=== PATIENT | male | born 1945 | race Caucasian/White ===

== ENCOUNTER 2022-03-15 07:49 | Outpatient (CLI) | payer MEDICARE, SELFPAY ==
--- NOTE | 2022-03-15 09:15 | MR_ITS ---
[address] [address] Phone:?[phone] Fax:?[phone] Referring Physician Information: Ge Lawrence M.D. [address] [facility] [address] Phone:?[phone] Fax:?[phone] Patient:?James Bear D.O.B:?1945 Sex:?Male Phone:?[phone] [facility] MRN:?[id number] Exam Date:?03/15/2022 ? EXAM: MR LUMBAR SPINE WITHOUT CONTRAST CLINICAL INFORMATION: Lumbar radiculopathy. COMPARISON:?MRI lumbar spine 06/22/2019. TECHNICAL INFORMATION: T1 and T2 FSE and STIR sagittal thin sections through the lumbar spine with T1 and T2 FSE axial sections at selected levels. INTERPRETATION: 5 lumbar levels with straightened lordotic alignment. Conus medullaris terminates at L1 and has normal signal. No evidence of arachnoid disease or abnormal neural development. Vertebral body heights are maintained. Paraspinal soft tissues appear normal. Partially visualized bilateral sacroiliac joint degeneration with possible reactive inflammatory change. L5-S1: Mild to moderate disc degeneration, dorsal disc bulge and endplate ridging, mild left facet degeneration. No central stenosis. Moderate right greater than left foraminal stenosis. L4-5: Status post left laminectomy and medial facetectomy. Moderate left asymmetric disc degeneration and ventral osteophyte, trace retrolisthesis, dorsal osteophyte with 5 mm AP T2 hyperintensity in the left lateral recess encroaching/impinging the left L5 nerve root (series 2 image 10, series 7 image 28), normal facet joints. Mild left asymmetric central stenosis. Mild to moderate right and moderate to severe left foraminal stenosis with left L4 impingement. L3-4: Mild disc degeneration and ventral osteophyte, left asymmetric disc bulge and endplate ridging, normal facet joints. No central or significant foraminal stenosis. L2-3: Mild disc degeneration, prominent ventral osteophyte, minimal facet degeneration. No central or foraminal stenosis. L1-2: Prominent ventral osteophyte, normal posterior disc contour. No central or foraminal stenosis. T12-L1: No central or foraminal stenosis. Compared to 06/22/2019 the L4-5 left posterolateral herniation/cyst has decreased in size. CONCLUSION: 1. L4-5 left posterolateral 5 mm T2 hyperintensity encroaches/impinges the L5 nerve root, possibly representing a disc herniation or discal cyst. 2. L4-5 moderate to severe left foraminal stenosis with left L4 impingement, also moderate right greater than left L5-S1. 3. 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 Electronically signed on 03/17/2022 7:19:00 PM by Ras Kim M.D.
== END 2022-03-15 07:50 | disposition home or self-care (01) ==
LOC: MRI 07:50
PROVIDERS: PCP Family Medicine; Visit Provider Orthopaedic Surgery Sports Medicine
DX: M54.16 Radiculopathy, lumbar region (principal); M51.26 Other intervertebral disc displacement, lumbar region; M48.061 Spinal stenosis, lumbar region without neurogenic claudication
CPT/HCPCS: 72148

== ENCOUNTER 2024-09-06 07:21 | Day surgery (SDC) | payer MEDICARE, SELFPAY ==
[2024-09-06] VITALS (22 sets, daily range): BP systolic 125–152; BP diastolic 56–89; PULSE 55–78; RESP 10–18; TEMP 35.6–36.8; O2SAT 92–98; BMI 34.0
[2024-09-06] MEDS: SODIUM CHLORIDE 0.9 % (FLUSH) 10 ML SYRINGE IVF (08:15)
[2024-09-06] MEDS: 0.9 % SODIUM CHLORIDE 500 ML 500 ML 100 ML IV ×2 (08:15→09:44)
--- NOTE | 2024-09-06 09:03 | W.PM.H&PU ---
History & Physical Update History & Physical Update H&P Reviewed and patient assessed: No changes noted H&P Updates: Patient has held his rivaroxaban for 3 days.
--- NOTE | 2024-09-06 09:04 | P.GSOP_ITS ---
Operative Note Date of procedure: 09/06/24 Pre-op diagnosis: Ventral incisional hernia Post-op diagnosis: Same Type of Procedure: 1. Laparoscopic lysis of adhesion 2. Laparoscopic-assisted repair of 3 cm incisional hernia with Phasix mesh Indications: The patient is a 79-year-old male who developed a hernia at the site of his incision from a prior low anterior resection for rectal cancer. We discussed options and elected to proceed with repair. Procedure Description: After discussing the risks and benefits of the procedure, the patient signed informed consent.? The operative site was marked and the patient was brought to the operating room and placed on the operating table in supine position.? Care was taken to pad the patient's pressure points.?? The patient was then intubated by anesthesia.?? The operative site was then prepped and draped in the usual sterile fashion.? A time-out was then performed. Entrance the abdomen was gained via Visiport technique in the left upper quadrant. The layers of the abdomen were visualized as I passed through. The abdomen was then insufflated. The patient was noted to have adhesions to his ileostomy site as well as to the noted hernia just above the umbilicus. An additional 5 port was placed in the left lateral abdomen. I began by sharply dissecting the adhesions from the hernia using a scissor. The hernia mainly had omental adhesions adherent to it. Just below the hernia however there was loops of small bowel which were densely adherent to the peritoneum. These were taken down sharply with a scissor. Once I had cleared enough space, I placed an additional 5 mm port in the left lower quadrant. The patient was noted to have multiple interloop adhesions between loops of small bowel. I turned my attention to the area of the ileostomy site. This was close enough to the initial hernia that taking down the adhesions here would help facilitate mesh placement, and also, the patient was concerned that he could develop a hernia in this location. Therefore, again I took down the adhesions between the omental fat and also small bowel. There were marie adherent to the abdominal wall indicative of the area of the anastomosis. This was again carefully taken down sharply. The fascia here was intact. Once I had freed the small bowel sufficiently to facilitate the hernia repair, I examined the small bowel. There appeared to possibly be 2 small serosal tears, inherent to the nature of the operation, on the most proximal loop of bowel. On 1 distal loop of bowel, it was unclear whether not a serosal tear was present. I looked at the area of the anastomosis. I had divided scar tissue between the anastomosis and the abdominal wall and it did not appear as there was any injury to the bowel, however given that this was on a staple line, and while I supposed to be marie on the bowel mesentery, I elected to over-sew this. The left upper quadrant port was upsized to a an 11 mm port. Through this I passed the needle and in Lembert fashion oversewed the area of marie at the distal aspect of the anasto mosis using 3-0 Vicryl. The needle was removed from the abdomen and at this time colleague enter the OR to better examine the area of small bowel around the hernia. In the distal area where I was not entirely certain that there was a serosal tear, it was thought that there may have been a full-thickness tear with succus possibly noted as there was a glimpse of yellow seen. I freed up this loop of small bowel which had filmy adhesions to another loop in the pelvis and was able to pull this further into view. While I did not see a full-thickness injury or succus, at this point I felt it was safest to open the skin at the site of the hernia and look at the bowel more closely. I created incision over the hernia itself using a knife. Dissection was taken down into the subcutaneous fat using cautery. I did open the fascia an additional cm. The fascia previously measured 3 cm. An Rocco wound retractor was then placed into the wound and the bowel was brought into view. An interloop adhesion was sharply divided and the bowel was examined closely. There was no sign of full- thickness injury. I believe that the yellow area was a small amount of mesenteric fat which was present in the interloop adhesion. Examining the bowel proximally and distally again I did not see a full-thickness injury. There was a small area that appeared to be a serosal tear which was oversewn with 3-0 silk in an imbricating fashion without narrowing the small bowel. The small bowel was then run proximally to examine the other area of concern and 2 small serosal tears were noted. These were also oversewn in Lembert fashion with care to avoid narrowing the lumen of the bowel. I was also able to examine the anastomosis. This also appeared to be intact without sign of injury. I dropped the bowel back into the abdomen and examined the hernia. Given the small size of the hernia I elected to create a preperitoneal space and closed the hernia primarily with intraperitoneal placement of mesh. I elected to use Phasix ST mesh. With a combination of cautery and blunt dissection I removed the peritoneum from the posterior rectus sheath creating a large pocket for the placement of mesh. Inferiorly at the patient's scar from his prior incision, the peritoneum did not come down as easily. I obtained a piece of Phasix ST mesh measuring 10 x 15 cm. I placed this in the preperitoneal space and it fit perfectly centered over the fascial opening. I then placed 2-0 PDS stay stitches in the mesh in the North South East and West position and then using a [employer] device passed the sutures through small stab incisions made in the skin. These were then tied in place. The mesh laid perfectly flat. I then closed the fascia with a running 1. PDS. I then insufflated the abdomen, at a pressure of 12. I again examined the bowel and there were no additional areas of concern. I then used an absorbable Tacker to tack the mesh inferiorly to the fascia along the edge where the peritoneum did not cover. The peritoneum cover the mesh on all the other side and was tacked over the mesh in the middle. The left upper quadrant port was then closed with 0 Vicryl using a [employer] [facility] device. The abdomen was then desufflated and the ports were removed. Exparel and Marcaine in combination were injected in the fascia and subcutaneous around the hernia repair site. The hernia was closed in layers with 3-0 Vicryl dermal and 4-0 Monocryl running subcuticular suture. Port sites were closed with 4-0 Monocryl suture. Glue was used to close the incisions including the stab incisions from the transfascial sutures. The patient was then woken and transported to the recovery area in stable condition. ? The patient tolerated the procedure well. Findings: 1. 3 cm supraumbilical incisional hernia 2. No hernia noted at ileostomy site 3. Dense adhesions between the small bowel and abdominal wall 4. Small serosal tears were repaired. Implants: Phasix ST mesh Anesthesia: GETA Surgeon: Hannah Bay MD Estimated blood loss (mL): 10 Condition: stable Disposition: PACU
[2024-09-06] MEDS: CEFAZOLIN 2 GM INJ IVP (09:17)
--- NOTE | 2024-09-06 09:21 | P.ANES_ITS ---
Anesthesia Charges Start Date/Time Anesthesia Start Date: 09/06/24 Anesthesia Start Time: 09:03 Stop Date/Time Anesthesia Stop Date: 09/06/24 Anesthesia Stop Time: 12:18 Summary Extremes of Age - Over 70 or under 1: MDA Coding CPT Codes CPT Codes: ANESTH REPAIR OF HERNIA - 53116 ([id number]) P2 - PATIENT W/MILD SYST DISEASE, QK - KEG HEADER 2-4 CNCRNT ANES PROC, QX - HOOKER INSPECTOR SVC W/ MD MED DIRECTION Additional Codes: Summary - Extremes of Age - Over 70 or under 1: MDA ([id number])
--- NOTE | 2024-09-06 09:21 | W.ANESCHARGE ---
Anesthesia Charges Start Date/Time Anesthesia Start Date: 09/06/24 Anesthesia Start Time: 09:03 Stop Date/Time Anesthesia Stop Date: 09/06/24 Anesthesia Stop Time: 12:18 Summary Extremes of Age - Over 70 or under 1: MDA Coding CPT Codes CPT Codes: ANESTH REPAIR OF HERNIA - 58423 ([id number]) P2 - PATIENT W/MILD SYST DISEASE, QK - PIZZA HUT ASSISTANT 2-4 CNCRNT ANES PROC, QX - LADIES ATTENDANT SVC W/ MD MED DIRECTION Additional Codes: Summary - Extremes of Age - Over 70 or under 1: MDA ([id number])
[2024-09-06] MEDS: BUPIVACAINE LIPOSOME 133 MG/10 ML INJ INFILTRATI (11:50)
[2024-09-06] MEDS: BUPIVACAINE 0.25% 30 ML INJECTION (11:50)
--- NOTE | 2024-09-06 12:29 | P.ANES_ITS ---
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
--- NOTE | 2024-09-06 12:29 | W.ANESCHARGE ---
Anesthesia Charges Start Date/Time Anesthesia Start Date: 09/06/24 Anesthesia Start Time: 09:03 Stop Date/Time Anesthesia Stop Date: 09/06/24 Anesthesia Stop Time: 12:18 Summary Extremes of Age - Over 70 or under 1: JAMMER OPERATOR Coding CPT Codes CPT Codes: ANESTH REPAIR OF HERNIA - 78183 ([id number]) P2 - PATIENT W/MILD SYST DISEASE, QK - STILL OPERATOR GIN 2-4 CNCRNT ANES PROC, QX - JAMMER OPERATOR SVC W/ MD MED DIRECTION Additional Codes: Summary - Extremes of Age - Over 70 or under 1: JAMMER OPERATOR ([id number])
--- NOTE | 2024-09-06 13:37 | SUR.PHASEII ---
Pt will continue his recovery on Med/Surg. Report given in Med/surgical services tech. Pt transported via wheelchair by RN.
[2024-09-06] MEDS: HYDROCODONE-ACETAMIN 5-325 MG 1 TAB PO ×3 (16:15→22:44)
[2024-09-06] MEDS: carvediloL 6.25 MG TABLET 12.5 MG PO (21:16)
[2024-09-06] MEDS: LEVOTHYROXINE 100 MCG TABLET 200 MCG PO (21:52)
[2024-09-07 02:28] VITALS: BP 120/61; PULSE 62; RESP 16; TEMP 36.6; O2SAT 94
[2024-09-07 07:00] VITALS: BP 136/74; PULSE 61; PULSE 62; RESP 18; TEMP 36.6; O2SAT 95
--- NOTE | 2024-09-07 07:00 | PC.NURSE ---
End of shift [id number]: Pt AxOx4, pleasant, and cooperative. VSS on RA. Op sites remain CDI. Pt report pain 6/10 at HS to the abdomen with activity, telegraphic typewriter mechanic utilized reposition back into bed - active ice - PRN medication. Pt reported relief and slept for majority of the night. CPAP in place. Pt using bathroom and walking hallways independently. Passing flatus. IV SL. Pt appears resting with call light in reach.
--- NOTE | 2024-09-07 08:15 | PM.DS1 ---
DS: Providers Provider Date Seen: 09/07/24 Date of admission: 09/06/24 Primary care physician: Not a Local Provider Admitting Clinician: Hannah Bay MD Attending Physician on discharge: Hannah Bay MD Date of Discharge: 09/07/24 DS: Diagnosis Discharge Diagnosis (1) S/P ventral herniorrhaphy: Status: Acute Problem details: Lysis of adhesions and repair small bowel serosal tear. (2) Chronic anticoagulation: Status: Acute (3) Obesity (BMI 30-39.9): Status: Acute (4) ANNETTE (obstructive sleep apnea): Status: Acute DS: Summary Hospital Course Hospital Course: The patient is a 79-year-old male who presented for repair of an incisional hernia. This was done on 09/06/2024. He had multiple intra-abdominal adhesions necessitating lysis. Three small bowel serosal tears were repaired and he was admitted overnight for observation. He did well overnight, had excellent pain control and was deemed safe for discharge home on postop day 1. Time Spent with Patient Time attestation: Total time spent providing and/or coordinating discharge services: Exam Narrative: Exam Narrative: General: No acute distress CV: Regular rate and rhythm Respiratory: Clear bilaterally Abdomen: Protuberant. Incisions without erythema. Minimally tender in the postoperative state. There is ecchymosis surrounding the left upper and left lower quadrant incisions. Const: Vital Signs, click to edit/add: Vital Signs - 24 hr 09/06/24 12:15 09/06/24 12:20 09/06/24 12:25 Temperature 97.0 F L Pulse Rate 68 66 65 Pulse Rate [Left P ulse Oximeter] Respiratory Rate 14 18 12 Blood Pressure 149/80 H 137/74 139/74 Blood Pressure [Ri ght Arm] Pulse Oximetry 92 93 93 Oxygen Delivery Me thod Room Air Room Air Room Air Oxygen Flow Rate 09/06/24 12:30 09/06/24 12:35 09/06/24 12:40 Temperature Pulse Rate 64 63 56 L Pulse Rate [Left P ulse Oximeter] Respiratory Rate 12 10 L 12 Blood Pressure 137/83 149/71 H 125/81 Blood Pressure [Ri ght Arm] Pulse Oximetry 93 96 98 Oxygen Delivery Me thod Room Air Nasal Cannula Room Air Oxygen Flow Rate 2 09/06/24 12:45 09/06/24 12:51 09/06/24 13:00 Temperature 97.4 F L 98.2 F Pulse Rate 57 L 56 L 55 L Pulse Rate [Left P ulse Oximeter] Respiratory Rate 14 14 14 Blood Pressure 139/71 130/56 L 125/82 Blood Pressure [Ri ght Arm] Pulse Oximetry 96 94 98 Oxygen Delivery Me thod Room Air Room Air Room Air Oxygen Flow Rate 09/06/24 13:15 09/06/24 13:30 09/06/24 14:00 Temperature 96.1 F L Pulse Rate 57 L 60 56 L Pulse Rate [Left P ulse Oximeter] Respiratory Rate 16 16 16 Blood Pressure 137/69 134/78 143/72 H Blood Pressure [Ri ght Arm] Pulse Oximetry 92 96 97 Oxygen Delivery Me thod Room Air Room Air Room Air Oxygen Flow Rate 09/06/24 14:15 09/06/24 14:30 09/06/24 15:00 Temperature 96.7 F L 96.7 F L Pulse Rate 56 L 56 L Pulse Rate [Left P ulse Oximeter] Respiratory Rate 16 16 Blood Pressure 142/81 H 132/66 Blood Pressure [Ri ght Arm] Pulse Oximetry 97 97 98 Oxygen Delivery Me thod Room Air Room Air Oxygen Flow Rate 09/06/24 15:00 09/06/24 15:00 09/06/24 16:00 Temperature 97.2 F L 96.7 F L Pulse Rate 57 L 56 L Pulse Rate [Left P ulse Oximeter] Respiratory Rate 18 16 Blood Pressure 125/65 132/66 Blood Pressure [Ri ght Arm] Pulse Oximetry 98 98 98 Oxygen Delivery Me thod Room Air Room Air Room Air Oxygen Flow Rate 09/06/24 17:00 09/06/24 18:00 09/06/24 19:00 Temperature 97.1 F L 97.0 F L 97.9 F Pulse Rate 59 L 67 Pulse Rate [Left P ulse Oximeter] 66 Respiratory Rate 18 16 16 Blood Pressure 139/78 150/69 H Blood Pressure [Ri ght Arm] 142/87 H Pulse Oximetry 98 96 97 Oxygen Delivery Me thod Room Air Room Air Room Air Oxygen Flow Rate 09/06/24 22:49 09/06/24 23:00 09/06/24 23:00 Temperature 97.9 F Pulse Rate Pulse Rate [Left P ulse Oximeter] 78 Respiratory Rate 18 18 Blood Pressure Blood Pressure [Ri ght Arm] 146/89 H Pulse Oximetry 95 95 95 Oxygen Delivery Me thod Room Air Room Air Oxygen Flow Rate 09/07/24 02:28 Temperature 98 F Pulse Rate Pulse Rate [Left P ulse Oximeter] 62 Respiratory Rate 16 Blood Pressure Blood Pressure [Ri ght Arm] 120/61 Pulse Oximetry 94 Oxygen Delivery Me thod CPAP Oxygen Flow Rate Discharge Plan Discharge Disposition: Home w/ Parent or Adult Discharging Surgeon: Hannah Bay Follow-Up Appointment: 09/22/24 @ 9:00am with Dr. Bay at the [facility] Prescriptions: New hydrocodone-acetaminophen 5-325 mg Tablet 1 - 2 tab PO Q6H PRN (Reason: Pain) Qty: 20 0RF Continued acetaminophen 500 mg tablet 500 mg PO Q6H PRN Rx Instructions: NO MORE THAN 4000 MG/DAY losartan 50 mg tablet 75 mg PO DAILY sildenafil 50 mg tablet 50 mg PO .As Needed PRN Rx Instructions: 25MG 6 DAYS A WEEK AND 100MG ONE DAY A WEEK-RETURN BLOOD FLOW AFTER SURGERY-PER UROLOGIST carvedilol 12.5 mg tablet 12.5 mg PO BID Rx Instructions: must administer with a meal/food levothyroxine 200 mcg tablet 200 mcg PO HS Ozempic 1 mg/dose (4 mg/3 mL) pen injector 1 mg subcut QWEEK Held rivaroxaban 20 mg tablet 20 mg PO DAILY Hold Instructions: Resume on 09/09/24. Hold until 09/09 Activity Level: Activity as Tolerated and No strenuous activity Activity Detail: No lifting more than 20 lb for 4 weeks Discharge Diet: Regular Patient Instructions: Sleep Apnea (DC), Laparoscopic Herniorrhaphy (DC), General Anesthesia (DC), Post-Operative Instructions: Hernia Repair Additional Instructions: You may restart rivaroxaban on . Wound care: Your sutures are under the skin and will dissolve over time. Leave glue in place until it falls off. OK to shower tomorrow but avoid bathing, soaking or swimming for 2 weeks. Pat the incisions dry. No need to wash or scrub the area. Apply ice to the area as needed for swelling. It is also OK to use a heating pad if this provides more comfort to you. Okay to wear your abdominal binder will your up and around help support your abdomen. No lifting more than 20 lbs for 4 weeks. Pain control: You were prescribed a pain medication. This medication contains acetaminophen (Tylenol). If you are taking your prescribed pain pills 4 times daily, do not take additional acetaminophen. As your pain improves, you can try taking acetaminophen instead of the prescribed pain pill. It is ok to take Ibuprofen or Naproxen (per directions on packaging). This medication helps with inflammation and swelling. Take an [id number] stool softener while you are taking prescribed pain medications to help alleviate constipation. I recommend Senna and/or Colace. Take as directed on package. If you have not had a bowel movement in 3 days, try taking Miralax as directed on the package. All of these are available over the counter. Follow-up Follow up with Dr. Bay as scheduled. Please call [phone] General Surgery clinic nurse if you are experiencing severe pain, nausea, vomiting, difficulty urinating, fever or have not had bowel movement in 4 days after surgery. Follow-up: Hannah Bay MD [Staff Physician] - 09/22/24 9:00 am (Follow up with Dr. Bay at the [facility].) Provider,Not a Local [Primary Care Provider] - Discharge Orders: Discharge Order (Routine); Ordered 09/07/24 Ordered By: Hannah Bay
[2024-09-07] MEDS: carvediloL 6.25 MG TABLET 12.5 MG PO (08:23)
[2024-09-07] MEDS: LOSARTAN POTASSIUM 50 MG TABLET 75 MG PO (08:23)
[2024-09-07] MEDS: HYDROCODONE-ACETAMIN 5-325 MG 1 TAB PO (08:23)
--- NOTE | 2024-09-07 10:53 | PC.NURSE ---
BOWEL SOUNDS ACTIVE AND PATIENT IS PASSING GAS. TOLERATING REGULAR DIET WITH NO C/O N/V. SMALL MIDLINE INCISION AND 3 LAP SITES GLUED AND JULI. NO REDNESS OR DRAINAGE NOTED. UP AD RENO IN ROOM AND TOLERATING ACTIVITY WELL. PAIN CONTROLLED WITH NORCO AND ACTIVE ICE. SALINE LOCK DC'D. REVIEWED DC INSTRUCTIONS WITH PATIENT AND PATIENT DC'D HOME VIA FRIEND.
== END 2024-09-07 10:12 | disposition home or self-care (01) ==
LOC: OR 12:29 → MEDSURG 14:13
PROVIDERS: Visit Provider Surgery
PROC: 0WQF4ZZ Repair Abdominal Wall, Percutaneous Endoscopic Approach (ICD-10-PCS; CPT 49593; principal; 2024-09-06 09:00)
DX: K43.2 Incisional hernia without obstruction or gangrene (principal); K66.0 Peritoneal adhesions (postprocedural) (postinfection); Z93.2 Ileostomy status
CPT/HCPCS: 49593; 00752; 99100; A9270; J0330; J0665; J0666; J0690; J1100; J1171; J1885; J2405; J2704; J2710; J3010; J7030; Q4100

== ENCOUNTER 2024-12-01 10:30 | Outpatient (RCR) | payer MEDICARE, SELFPAY ==
--- NOTE | 2024-11-18 08:54 | PT.OPE ---
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 moderate-severe L5-S1 lumbar degenerative disc disease with adjacent moderate degenerative changes including significant marginal osteophytosis that is nearly bridging every disc space but is quite significant from the L5-S1 level. Straightening to the lumbar spine noted. Subjective Preferred Name Saud Marion Pt is a 79 y.o male who presents to PT with c/o severe R-sided LS pain with radicular sxs of insidious origin ~2-3 weeks ago. Denies known injuries with sxs beginning after a trip to [place], [place] with sudden onset of severe B-sided LS pain with radicular sxs extending from his B LS to B Achilles. L- sided sxs have mostly resolved with sxs concentrated on his R side. Describes being unable to walk without significant limping for the first few days with decreased intensity and frequency of sxs but WBing activities remain very limited due to high levels of R LE sxs. Describes sxs as sharp shooting and electric burning sensation which has significantly limited his activity levels. Minimal sleep last night due to high levels of pain sleeping on B sides. Previous L4-5 LS surgery and pt is fearful of another LS surgery since ?I only have so many good acuna left at 79 y .o.? Pt had hernia surgery 1.5 -2 months ago and has been gradually increasing exercise at the gym and walking for weight loss. PMH also includes 2 aneurysms, HTN, prostate CA and LS OA. LS radiographs on 11/11/24 found: ?moderate-severe L5-S1 lumbar degenerative disc disease with adjacent moderate degenerative changes including significant marginal osteophytosis that is nearly bridging every disc space but is quite significant from the L5-S1 level. Straightening to the lumbar spine noted. Minimal- mild R hip OA.? Flexeril provides some sx relief at night but not consistently. AGGR factors : extended fwd bending, extended sitting, standing, walking, carrying objects, yardwork, walking down stairs and hills. ALLEV factors: Flexeril, gentle movement, heat, short distances of walking. Pt hopes to avoid surgery and to return to performing walking, yardwork and fishing at his cabin near [place] this spring/ summer . 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 R sciatic neural tension found with testing with decreased tightness following nerve flossing. Significant R-sided LS, glute and piriformis muscles tightness with hypertonicity and sx reproduction with palpation. R glute and quad weakness also contributing to sxs. Pt struggling with high levels of R-sided LS radicular sxs which limited interventions performed today and Dr. Lawrence was contacted to discuss a dose of prednisone. Good response to MT, gentle stretching and B LE strengthening. They will benefit greatly from continued skilled therapy to address these limitations. Primary Functional Limitations Extended fwd bending, extended sitting, standing, walking, carrying objects, yardwork, walking down stairs and hills Plan of Care Rehabilitation Potential Good Rehabilitation Potential Comments Due to degenerative changes and PSH Physical Therapy Goals Short-term goals to be completed in 4 weeks: 1. Pt will report improved quality of sleep waking <3x per night due to LS sxs for >3 consecutive days. 2. Pt will report improved tolerance to driving >10 min with no elevation in R-sided LS radicular sxs to improve jamin to daily activities and travelling to medical appts. Long-term goals to be completed in 10 weeks: 1. Pt will be independent and compliant with HEP. 2. Pt will display improved R hip flex, ABD and ext, and abdominal strength of >/= 4+/5 to improve tolerance to work duties and all functional daily activities. 3. Pt will be able to walk >12 minutes with no elevation in LS or radicular sxs to maintain cardiovascular health . 4. Pt will report >50% improvement in modified OSWESTRY to increase tolerance to functional daily activities. Coordination/Communication With Referral Source Treatment Plan/Direct Interventions Joint Mobilization,Manual Therapy,Therapeutic Exercises Frequency/Duration 2x per week for at least 8-12 visits, decreasing frequency as able. Patient Will Be Discharged From Therapy Completion of LTG(s),Skills Plateau,Independent w/HEP, Independently Progressing Evaluation Billing Untimed Code Treatment Minutes 26 Complexity Moderate Certification Information Initial Certification Date 11/16/24 Ending Certification Date 02/14/25 Provider Signature Required Yes Provider Signature Shows Agreement With POC & Medical Necessity Physician NPI Number Write NPI# Here Physician Comment/Change : Physician Signature & Date Requested Please Sign/Date Here
== END 2025-03-31 23:59 | disposition home or self-care (01) ==
PROVIDERS: Visit Provider Orthopaedic Surgery Sports Medicine
DX: M51.362 Other intervertebral disc degeneration, lumbar region with discogenic back pain and lower extremity pain (principal); M54.16 Radiculopathy, lumbar region; Z51.89 Encounter for other specified aftercare
CPT/HCPCS: 97110; 97140; 97162